=== PATIENT | male | born 1975 | race African-American/Black ===

== ENCOUNTER 2022-03-11 10:11 | Inpatient (IN) | payer BC, SELFPAY ==
[2022-03-11 14:08] VITALS: BMI 40.5
[2022-03-11] MEDS ORDERED: Ondansetron PF 4 MG/2 ML Vial IVP PRN (15:13)
[2022-03-11] MEDS ORDERED: Ondansetron ODT 4 MG TAB PO PRN (15:13)
[2022-03-11] MEDS: Nicotine 14 MG PATCH TD SCH (16:50)
[2022-03-11] MEDS: hydrALAZINE 20 MG/ML VIAL SLOW IVP PRN (16:50)
[2022-03-11 19:34] LABS: SARS-CoV-2 PCR by NAA Not Detected (NotDetected)
[2022-03-11] MEDS: Nitroglycerin 2% Ointment 1 INCH/1 GM Packet TOP SCH (20:21)
[2022-03-11] MEDS: Acetaminophen 325 MG TAB PO PRN (20:22)
[2022-03-11] MEDS ORDERED: Labetalol HCl 100 MG/20 ML VIAL SLOW IVP SCH (22:15)
[2022-03-12] MEDS: Acetaminophen 325 MG TAB PO PRN (04:14)
[2022-03-12 04:28] LABS: #Lymphocytes 1.8 thou/uL (1.20-3.40); #Monocytes 0.7 thou/uL (0.11-0.59); #Neutrophils 4.6 thou/uL (1.40-6.50); %Basophils 0.4 % (0.0-1.0); %Eosinophils 0.5 % (0.0-10.0); %Lymphocytes 24.7 % (21.0-51.0); %Monocytes 10.1 % (0.0-10.0); %Neutrophils 64.4 % (42.0-75.0); Hemoglobin 14.5 g/dL (14.0-18.0); Mean Corpuscular HGB CONC 31.4 g/dL (32.0-36.0); Mean Corpuscular Volume 95.7 fL (78.0-98.0); Mean Platelet Volume 9.8 fL (7.4-10.4); Platelet Count 185 thou/uL (130-400); RBC Distribution Width 12.5 % (11.5-14.5); Red Blood Cell (RBC) Count 4.82 mill/uL (4.70-6.10); White Blood Cell (WBC) Count 7.2 thou/uL (4.8-10.8)
[2022-03-12 04:37] LABS: Hemoglobin A1c 5.1 % (4.0-6.0)
[2022-03-12 04:54] LABS: Anion Gap 13 mmol/L (10-20); BUN (Urea Nitrogen) 18 mg/dL (8.9-20.6); Calc. Creatinine Clearance 128 mL/min (70-130); Calcium 8.9 mg/dL (7.8-10.44); Carbon Dioxide 23 mmol/L (22-29); Cardiac Risk 6.3 (Less than 4.5); Chloride 103 mmol/L (98-107); Cholesterol 215 mg/dl (< 200 Desired); Glucose 116 mg/dL (70-105); HDL Cholesterol 34 mg/dL (>60 Neg Risk); LDL Cholesterol, Calculated 165 mg/dL; Potassium 3.7 mmol/L (3.5-5.1); Sodium 135 mmol/L (136-145); Triglycerides 82 mg/dL (Less than 150)
[2022-03-12] MEDS: Aspirin 81 mg Enteric Coated Tablet PO SCH (08:46)
[2022-03-12] MEDS: Nitroglycerin 2% Ointment 1 INCH/1 GM Packet TOP SCH (08:46)
[2022-03-12] MEDS: hydrALAZINE 20 MG/ML VIAL SLOW IVP PRN (08:48)
[2022-03-12] MEDS ORDERED: Amlodipine 5 MG TAB PO SCH ×3 (09:00→13:15)
[2022-03-12] MEDS ORDERED: hydrALAZINE 25 MG TAB PO SCH (09:30)
[2022-03-12] MEDS: Fioricet 325/50/40 mg Tablet PO PRN (11:28)
[2022-03-12] MEDS ORDERED: niCARdipine 25 MG in Sodium Chloride 0.9% 250 ML 250 ML IVPB SCH (13:15)
[2022-03-12] MEDS: hydrALAZINE 25 MG TAB PO SCH ×2 (14:22→21:03)
[2022-03-12] MEDS ORDERED: Nitroglycerin 50 MG/250 ML BOT 250 ML IVPB SCH (16:45)
[2022-03-12] MEDS ORDERED: HYDROmorphone 0.5 MG/0.5 ML SYRINGE SLOW IVP SCH (17:00)
[2022-03-12] MEDS: Nicotine 14 MG PATCH TD SCH (17:09)
[2022-03-12] MEDS: niCARdipine 50 MG in Sodium Chloride 0.9% 250 ML 230 ML IV SCH ×3 (17:16→22:43)
[2022-03-12] MEDS: cloNIDine 0.1 MG TAB PO SCH (21:03)
[2022-03-13] MEDS: niCARdipine 50 MG in Sodium Chloride 0.9% 250 ML 230 ML IV SCH ×5 (03:03→21:23)
[2022-03-13 03:50] LABS: #Lymphocytes 1.9 thou/uL (1.20-3.40); #Monocytes 0.6 thou/uL (0.11-0.59); #Neutrophils 5.8 thou/uL (1.40-6.50); %Basophils 0.2 % (0.0-1.0); %Eosinophils 0.4 % (0.0-10.0); %Lymphocytes 22.6 % (21.0-51.0); %Monocytes 7.3 % (0.0-10.0); %Neutrophils 69.4 % (42.0-75.0); Hemoglobin 16.3 g/dL (14.0-18.0); Mean Corpuscular HGB CONC 31.9 g/dL (32.0-36.0); Mean Corpuscular Hemoglobin 30.4 pg (27.0-31.0); Mean Corpuscular Volume 95.3 fL (78.0-98.0); Mean Platelet Volume 10.2 fL (7.4-10.4); Platelet Count 176 thou/uL (130-400); RBC Distribution Width 12.5 % (11.5-14.5); Red Blood Cell (RBC) Count 5.38 mill/uL (4.70-6.10); White Blood Cell (WBC) Count 8.3 thou/uL (4.8-10.8)
[2022-03-13 04:05] LABS: Anion Gap 15 mmol/L (10-20); BUN (Urea Nitrogen) 11 mg/dL (8.9-20.6); Calc. Creatinine Clearance 161 mL/min (70-130); Calcium 9.4 mg/dL (7.8-10.44); Carbon Dioxide 21 mmol/L (22-29); Chloride 105 mmol/L (98-107); Glucose 114 mg/dL (70-105); Potassium 3.8 mmol/L (3.5-5.1); Sodium 137 mmol/L (136-145)
[2022-03-13] MEDS: Aspirin 81 mg Enteric Coated Tablet PO SCH (09:03)
[2022-03-13] MEDS: Fioricet 325/50/40 mg Tablet PO PRN (09:03)
[2022-03-13] MEDS: hydrALAZINE 25 MG TAB PO SCH ×3 (09:03→21:22)
[2022-03-13] MEDS: Amlodipine 10 MG TAB PO SCH (09:03)
[2022-03-13] MEDS: cloNIDine 0.1 MG TAB PO SCH ×2 (09:03→21:22)
[2022-03-13] MEDS ORDERED: hydrALAZINE 25 MG TAB PO SCH (09:30)
[2022-03-13] MEDS ORDERED: Triamterene/Hydrochlorothiazide 37.5 mg/25 mg Tablet PO SCH (13:45)
[2022-03-13] MEDS: Triamterene/Hydrochlorothiazide 37.5 mg/25 mg Tablet PO SCH (15:03)
[2022-03-13] MEDS: Nicotine 14 MG PATCH TD SCH (15:41)
[2022-03-14] MEDS: Fioricet 325/50/40 mg Tablet PO PRN ×2 (01:22→20:48)
[2022-03-14 03:49] LABS: #Lymphocytes 1.6 thou/uL (1.20-3.40); #Monocytes 0.6 thou/uL (0.11-0.59); #Neutrophils 7.4 thou/uL (1.40-6.50); %Basophils 0.1 % (0.0-1.0); %Eosinophils 0.4 % (0.0-10.0); %Lymphocytes 16.3 % (21.0-51.0); %Monocytes 6.4 % (0.0-10.0); %Neutrophils 76.8 % (42.0-75.0); Mean Corpuscular HGB CONC 32.4 g/dL (32.0-36.0); Mean Corpuscular Volume 95.5 fL (78.0-98.0); Mean Platelet Volume 9.6 fL (7.4-10.4); Platelet Count 193 thou/uL (130-400); RBC Distribution Width 12.5 % (11.5-14.5); Red Blood Cell (RBC) Count 5.17 mill/uL (4.70-6.10); White Blood Cell (WBC) Count 9.6 thou/uL (4.8-10.8)
[2022-03-14 04:09] LABS: Anion Gap 14 mmol/L (10-20); BUN (Urea Nitrogen) 13 mg/dL (8.9-20.6); Calc. Creatinine Clearance 174 mL/min (70-130); Calcium 9.2 mg/dL (7.8-10.44); Carbon Dioxide 20 mmol/L (22-29); Chloride 105 mmol/L (98-107); Glucose 115 mg/dL (70-105); Potassium 3.9 mmol/L (3.5-5.1); Sodium 135 mmol/L (136-145)
[2022-03-14] MEDS: Amlodipine 10 MG TAB PO SCH (07:49)
[2022-03-14] MEDS: cloNIDine 0.1 MG TAB PO SCH ×2 (07:49→20:45)
[2022-03-14] MEDS: Aspirin 81 mg Enteric Coated Tablet PO SCH (07:49)
[2022-03-14] MEDS: hydrALAZINE 25 MG TAB PO SCH ×3 (07:49→20:46)
[2022-03-14] MEDS: Nicotine 14 MG PATCH TD SCH (12:58)
[2022-03-15 04:49] LABS: #Lymphocytes 1.8 thou/uL (1.20-3.40); #Monocytes 0.6 thou/uL (0.11-0.59); #Neutrophils 4.7 thou/uL (1.40-6.50); %Basophils 0.5 % (0.0-1.0); %Eosinophils 0.3 % (0.0-10.0); %Lymphocytes 25.3 % (21.0-51.0); %Neutrophils 65.9 % (42.0-75.0); Hemoglobin 15.3 g/dL (14.0-18.0); Mean Corpuscular Hemoglobin 30.8 pg (27.0-31.0); Mean Corpuscular Volume 96.3 fL (78.0-98.0); Mean Platelet Volume 9.6 fL (7.4-10.4); Platelet Count 216 thou/uL (130-400); RBC Distribution Width 12.5 % (11.5-14.5); Red Blood Cell (RBC) Count 4.97 mill/uL (4.70-6.10); White Blood Cell (WBC) Count 7.1 thou/uL (4.8-10.8)
[2022-03-15 05:04] LABS: Anion Gap 13 mmol/L (10-20); BUN (Urea Nitrogen) 16 mg/dL (8.9-20.6); Calc. Creatinine Clearance 153 mL/min (70-130); Calcium 9.1 mg/dL (7.8-10.44); Carbon Dioxide 22 mmol/L (22-29); Chloride 104 mmol/L (98-107); Glucose 110 mg/dL (70-105); Potassium 3.9 mmol/L (3.5-5.1); Sodium 135 mmol/L (136-145)
[2022-03-15] MEDS: Aspirin 81 mg Enteric Coated Tablet PO SCH (08:59)
[2022-03-15] MEDS: hydrALAZINE 25 MG TAB PO SCH ×2 (08:59→14:54)
[2022-03-15] MEDS: Amlodipine 10 MG TAB PO SCH (08:59)
[2022-03-15] MEDS: cloNIDine 0.1 MG TAB PO SCH (08:59)
[2022-03-15] MEDS: Triamterene/Hydrochlorothiazide 37.5 mg/25 mg Tablet PO SCH (08:59)
[2022-03-15] MEDS: Nicotine 14 MG PATCH TD SCH (14:55)
[2022-03-15 16:01] VITALS: BP 153/75; TEMP 97.4
== END 2022-03-15 20:12 | disposition home or self-care (01) | DRG 305 ==
LOC: 2SW 10:11 → OBSVTOIN 03-12 13:07 → CCU 03-12 14:00 → 2NO 03-14 16:06
PROVIDERS: ADMIT Internal Medicine; ATTEND Internal Medicine
DX: I16.1 Hypertensive emergency (principal); N17.9 Acute kidney failure, unspecified; E87.1 Hypo-osmolality and hyponatremia; Z68.41 Body mass index [BMI] 40.0-44.9, adult; I16.0 Hypertensive urgency; F17.210 Nicotine dependence, cigarettes, uncomplicated; F12.90 Cannabis use, unspecified, uncomplicated; E78.5 Hyperlipidemia, unspecified; N18.2 Chronic kidney disease, stage 2 (mild); I12.9 Hypertensive chronic kidney disease with stage 1 through stage 4 chronic kidney disease, or unspecified chronic kidney disease; E78.00 Pure hypercholesterolemia, unspecified; E66.01 Morbid (severe) obesity due to excess calories; G47.33 Obstructive sleep apnea (adult) (pediatric); Z20.822 Contact with and (suspected) exposure to COVID-19; Z91.14 Patient's other noncompliance with medication regimen; Z71.6 Tobacco abuse counseling; Z72.89 Other problems related to lifestyle; Z83.3 Family history of diabetes mellitus; Z82.49 Family history of ischemic heart disease and other diseases of the circulatory system; Z79.899 Other long term (current) drug therapy
CPT/HCPCS: 36415; 80048; 80061; 83036; 85025; J0360; J1170; J7050; U0003; U0005